=== PATIENT | male | born 1955 | race Caucasian/White ===

== ENCOUNTER 2018-06-04 12:09 | Observation (INO) | payer OTHER ==
--- NOTE | 2018-06-04 12:53 | ED ---
Complex/Multi-Sys Presentation - HPI Summary HPI Summary: [facility] 63[facility] edema times several weeks. Patient has a history of kidney transplant. He is currently taking torsemide. Pt. follows with Dr. Matamoros. Pt. denies fever, CP, SOB. Pt. was actually suppose to be a direct admit to the hospitalist under Dr. Gunter. Symptoms are moderate in severity. No current modifying factors. - History Of Current Complaint Chief Complaint: EDExtremityLower Time Seen by Provider: 06/04/18 12:46 Hx Obtained From: Patient - Allergies/Home Medications Allergies/Adverse Reactions: Allergies Allergy/AdvReac Type Severity Reaction Status Date / Time amlodipine [From [facility]] Allergy Severe Edema Verified 06/03/18 15:29 Home Medications: Home Medications Atorvastatin* [Lipitor*] 40 mg PO 1700 06/04/18 [History Confirmed 06/04/18] Fenofibrate,Micronized [Antara] 67 mg PO DAILY 06/04/18 [History Confirmed 06/04] Isosorbide Mononitrate [Isosorbide Mononitrate ER] 30 mg PO DAILY 06/04/18 [ History Confirmed 06/04/18] hydrALAZINE TAB* [Apresoline TAB*] 25 mg PO TID 06/04/18 [History Confirmed 08/10] predniSONE [Prednisone 5 MG TAB] 5 mg PO DAILY 06/04/18 [History Confirmed 06/04] PMH/Surg Hx/FS Hx/Imm Hx Previously Healthy: Yes Musculoskeletal History: Denies: Hx Rheumatoid Arthritis, Hx Osteoporosis Infectious Disease History: No Infectious Disease History: Denies: Traveled Outside the [place] in Last 30 Days - Family History Known Family History: Positive: Other - noncontributory - Social History Occupation: Retired Lives: With Family Alcohol Use: None Substance Use Type: Reports: None Smoking Status (MU): Never Smoked Tobacco Review of Systems Constitutional: Negative Negative: Fever, Chills Cardiovascular: Negative Negative: Palpitations, Chest Pain Respiratory: Negative Negative: Shortness Of Breath, Cough Gastrointestinal: Negative Positive: Other - Bilateral LE edema Neurological: Negative All Other Systems Reviewed And Are Negative: Yes Physical Exam Triage Information Reviewed: Yes Vital Signs On Initial Exam: Initial Vitals Temp Pulse Resp BP Pulse Ox 98.0 F 86 16 134/94 94 06/04/18 12:10 06/04/18 12:10 06/04/18 12:10 06/04/18 12:10 06/04/18 12:10 Vital Signs Reviewed: Yes Appearance: Positive: Well-Appearing - Pt. sitting up in bed in NAD. present. Skin: Positive: Warm, Dry Head/Face: Positive: Normal Head/Face Inspection Eyes: Positive: Normal, EOMI Neck: Positive: Supple Respiratory/Lung Sounds: Positive: Breath Sounds Present, Rales Cardiovascular: Positive: Normal, RRR Musculoskeletal: Positive: Other - Bilateral pitting edema. No signs of infection Neurological: Positive: Normal, CN Intact II-III Psychiatric: Positive: Affect/Mood Appropriate Diagnostics - Vital Signs Vital Signs Temp Pulse Resp BP Pulse Ox 06/04/18 12:10 98.0 F 86 16 134/94 94 - Laboratory Lab Statement: Any lab studies that have been ordered have been reviewed, and results considered in the medical decision making process. Complex Multi-Symp Course/Dx Course Of Treatment: Pt. presenting for direct admit for ongoing peripheral edema. He is afebrile, stable vital signs. Gen. is to be admitted to Dr. Gunter's service. - Diagnoses Provider Diagnoses: Peripheral edema Discharge - Sign-Out/Discharge Documenting (check all that apply): Patient Departure - Discharge Plan Condition: Stable Disposition: ADMITTED TO [facility] - Billing Disposition and Condition Condition: STABLE Disposition: Admitted to [facility]
--- NOTE | 2018-06-04 15:33 | ADMNOTE ---
Subjective Date of Service: 06/04/18 Interval History: ADMISSION HISTORY AND PHYSICAL EXAM: Allergies Allergy/AdvReac Type Severity Reaction Status Date / Time amlodipine [From [facility]] Allergy Severe Edema Verified 06/03/18 15:29 Home Medications Medication Instructions Recorded Confirmed Type Allopurinol TAB* [Zyloprim 100 MG 300 mg PO DAILY 06/03/18 06/04/18 History TAB*] Aspirin [Gricelda Aspirin EC Low Dose 81 mg PO DAILY 06/03/18 06/04/18 History 81 MG] Metoprolol Succinate [Kapspargo 25 mg PO DAILY 06/03/18 06/04/18 History Sprinkle] Mycophenolate Mofetil CAP(*) 1,000 mg PO BID 06/03/18 06/04/18 History [Cellcept CAP(*)] Torsemide TAB* [Demadex*] 40 tab PO SEE INSTRUCTIONS 06/03/18 06/04/18 History cycloSPORINE [Cyclosporine] 100 mg PO BID 06/03/18 06/04/18 History Atorvastatin* [Lipitor*] 40 mg PO 1700 06/04/18 06/04/18 History Fenofibrate,Micronized [Antara] 67 mg PO DAILY 06/04/18 06/04/18 History Isosorbide Mononitrate [Isosorbide 30 mg PO DAILY 06/04/18 06/04/18 History Mononitrate ER] hydrALAZINE TAB* [Apresoline TAB*] 25 mg PO TID 06/04/18 06/04/18 History predniSONE [Prednisone 5 MG TAB] 5 mg PO DAILY 06/04/18 06/04/18 History HPI: about 6 weeks ago patient developed increasing edema of th elower half of his body, sufficient to greatly interfere with his walking. He only weighs himself about once o week or less. He gained at most 20 lbs, since lost 10 lbs but no improvement in his subj edema. No response to po mrotlazone with IV furosemide 120 mg this week Taking po torsemide 20 mg tid recently Nocturia x 3-4. No SOB. Family History: Findings - Father age 57 [place], smoked. Mother lived at least to . Social History: Findings - Never smoked. No alcohol abuse. SDM is his fiancee Margot Anthony. Past Medical History: Findings - Finished 35 RT for basal cell nose yesterday. Renal transplnat 2002. PCK. CABG x 5 2 yrs ago. Melanoma nose 2011. LTKA x 2 , tonsillectomy, stefan R IHR. Review of Systems - Measurements Intake and Output: Intake and Output Last 24 Hours 06/02/18 06/03/18 06/04/18 06/05/18 06:59 06:59 06:59 06:59 Weight 234 lb 9.6 oz - Review of Systems Constitutional Symptoms: Positive: Weight Gain - 10-20 lbx Dermatology: Positive: Normal HEENT: Positive: Normal Eyes: Positive: Normal Thyroid: Positive: Normal Pulmonary: Positive: Normal Cardiology: Positive: Normal Gastroenterology: Positive: Normal Genital - Urinary: Positive: Normal Endocrinology: Positive: Normal Hematologic/Lymphatic: Positive: Anemia Neurology: Positive: Normal Psychiatry: Positive: Normal Objective Active Medications: Allopurinol (Zyloprim Tab*) 300 mg PO DAILY [facility] Aspirin (Aspirin Ec Tab*) 81 mg PO DAILY [facility] Atorvastatin Calcium (Lipitor*) 40 mg PO 1700 [facility] Cyclosporine (Sandimmune (Nf)) 100 mg PO BID [facility]; Protocol Hydralazine HCl (Apresoline Tab*) 25 mg PO TID [facility] Furosemide 100 mg/ Sodium (Chloride) 100 mls @ 40 mls/hr IV .(as INITIAL RATE) [facility]; Protocol Isosorbide Mononitrate (Imdur Er Tab*) 30 mg PO DAILY [facility] Metolazone (Zaroxolyn Tab*) 10 mg PO DAILY [facility] Mycophenolate Mofetil (Cellcept Cap(*)) 1,000 mg PO BID [facility] Non-Formulary Medication (Fenofibrate,Micronized [Antara]) 67 mg PO DAILY [facility] Non-Formulary Medication (Metoprolol Succinate [Kapspargo Sprinkle]) 25 mg PO DAILY [facility] Prednisone (Deltasone Tab*) 5 mg PO DAILY [facility] Vital Signs - 8 hr 06/04/18 06/04/18 12:10 13:30 Temperature 98.0 F 97.6 F Pulse Rate 86 124 Respiratory 16 22 Rate Blood Pressure 134/94 143/102 (mmHg) O2 Sat by Pulse 94 100 Oximetry Oxygen Devices in Use Now: None Appearance: Alert, sitting up in bed. In good spirits. Looks comfortable. Eyes: No Scleral Icterus Ears/Nose/Mouth/Throat: Clear Oropharnyx, Mucous Membranes Moist Neck: NL Appearance and Movements; NL JVP, No Thyroid Enlargement, Masses Respiratory: Symmetrical Chest Expansion and Respiratory Effort, Clear to Auscultation, Clear to Percussion Cardiovascular: NL Sounds; No Murmurs; No JVD, RRR, No Edema, - Abdominal: NL Sounds; No Tenderness; No Distention, No Hepatosplenomegaly, - Extremities: No Clubbing, Cyanosis, - - 3+ edema LE's Skin: No Nodules or Sclerosis, - - nose very red, yellow exudate around nares Neurological: Alert and Oriented x 3, NL Sensation Assess/Plan/Problems-Billing Assessment: - Patient Problems (1) Edema Current Visit: Yes Status: Acute Code(s): R60.9 - EDEMA, UNSPECIFIED SNOMED Code(s): 657042762 Comment: Note PVR of 0 by bladder scan 06/04/18. Albumin 3.7 05/24. Labs pending. Start IV furosemide 40 mg/hr 06/04, metolazone 10 mg daily 06/04. (2) CKD (chronic kidney disease) Current Visit: Yes Status: Acute Code(s): N18.9 - CHRONIC KIDNEY DISEASE, UNSPECIFIED SNOMED Code(s): 436752524 Comment: PCK s/p renal transplant 2002. Continue cyclosporine, mycophenolae , prednisone. BMP pending, repeat 06/05. (3) CAD (coronary artery disease) Current Visit: Yes Status: Acute Code(s): I25.10 - ATHSCL HEART DISEASE OF [place] CORONARY ARTERY W/O ANG PCTRS SNOMED Code(s): 39409371 Comment: Continue ASA, metoprolol, statin, nitrate. (4) HTN (hypertension) Current Visit: Yes Status: Acute Code(s): I10 - ESSENTIAL (PRIMARY) HYPERTENSION SNOMED Code(s): 21207897 Comment: Continue BB, hydralazine, nitrate. (5) Gout Current Visit: Yes Status: Acute Code(s): M10.9 - GOUT, UNSPECIFIED SNOMED Code(s): 95524232 Comment: Continue allopurinol.
[2018-06-04] MEDS ORDERED: Furosemide IV* 100 MG in NS 0.9% 100 ML* 90 ML IV SCH ×4 (16:00)
[2018-06-04 16:18] LABS: ABS Basophils 0.1 10^3/ul (0-0.2); ABS Eosinophils 0.1 10^3/ul (0-0.6); ABS Lymphocytes 0.3 10^3/ul (1.0-4.8); ABS Monocytes 0.4 10^3/ul (0-0.8); ABS Neutrophils 7.1 10^3/ul (1.5-7.7); ABS Nucleated RBC 0 10^3/ul; Hematocrit 34 % (42-52); Hemoglobin 11.2 g/dl (14.0-18.0); Lymphocyte % 3.5 % (25-47); Mean Corpuscular HGB Conc 33 g/dl (31-36); Mean Corpuscular Hemoglobin 29 pg (27-31); Mean Corpuscular Volume 89 fL (80-94); Mean Platelet Volume 9.9 um3 (7.4-10.4); Nucleated Red Blood Cells % 0; Platelet Count 121 10^3/ul (150-450); Red Blood Count 3.83 10^6/ul (4.00-5.40); Red Cell Distribution Width 16 % (10.5-15); White Blood Count 7.9 10^3/ul (3.5-10.8)
[2018-06-04 16:36] LABS: EGFR Non-African American 21.2 (>60)
[2018-06-04] MEDS: FUROSEMIDE IV SCH (17:23)
[2018-06-04] MEDS: NS 0.9% IV SCH (17:23)
[2018-06-04] MEDS: Metolazone TAB* 5 MG PO SCH (17:23)
[2018-06-04] MEDS: Atorvastatin* 40 MG TAB PO SCH (17:23)
[2018-06-04 19:23] LABS: INR 1.04 (0.77-1.02)
[2018-06-04] MEDS: Mycophenolate Mofetil TAB(*) 500 MG PO SCH (21:07)
[2018-06-04] MEDS: hydrALAZINE TAB* 25 MG PO SCH (21:07)
[2018-06-04] MEDS: Heparin VIAL(*) 5000 UNITS/ML VIAL (FIVE THOUSAND) SUBCUT SCH (21:08)
[2018-06-04] MEDS: CYCLOSPORINE 100 MG PO SCH (21:08)
[2018-06-05] MEDS: Heparin VIAL(*) 5000 UNITS/ML VIAL (FIVE THOUSAND) SUBCUT SCH ×3 (06:00→20:03)
[2018-06-05] MEDS: FUROSEMIDE IV SCH ×3 (06:19→16:48)
[2018-06-05] MEDS: NS 0.9% IV SCH ×3 (06:19→16:48)
[2018-06-05] MEDS ORDERED: Metoprolol Succinate XL TAB* 25 MG PO SCH (09:00)
[2018-06-05] MEDS: Aspirin EC TAB* 81 MG TAB.EC PO SCH (09:05)
[2018-06-05] MEDS: predniSONE TAB* 5 MG PO SCH (09:05)
[2018-06-05] MEDS: Metolazone TAB* 5 MG PO SCH (09:05)
[2018-06-05] MEDS: Allopurinol TAB* 300 MG PO SCH (09:05)
[2018-06-05] MEDS: Isosorbide Mononitrate ER TAB* 30 MG PO SCH (09:06)
[2018-06-05] MEDS: hydrALAZINE TAB* 25 MG PO SCH ×3 (09:06→19:53)
[2018-06-05] MEDS: CYCLOSPORINE 100 MG PO SCH ×2 (09:06→19:53)
[2018-06-05] MEDS: Mycophenolate Mofetil TAB(*) 500 MG PO SCH ×2 (09:06→19:54)
[2018-06-05 09:10] LABS: EGFR Non-African American 22.2 (>60)
[2018-06-05] MEDS: FENOFIBRATE MICRONIZED 67 MG PO SCH (09:13)
--- NOTE | 2018-06-05 09:53 | PN ---
Subjective Date of Service: 06/05/18 Interval History: Legs sl less swollen subj. No new c/o. Family History: Findings - Father age 57 [place], smoked. Mother lived at least to . Social History: Findings - Never smoked. No alcohol abuse. SDM is his yohanancepat Anthony. Past Medical History: Findings - Finished 35 RT for basal cell nose yesterday. Renal transplnat 2002. PCK. CABG x 5 2 yrs ago. Melanoma nose 2010. LTKA x 2 , tonsillectomy, appy, R IHR. Objective Active Medications: Allopurinol (Zyloprim Tab*) 300 mg PO DAILY [facility] Last Admin: 06/05/18 09:05 Dose: 300 mg Aspirin (Aspirin Ec Tab*) 81 mg PO DAILY [facility] Last Admin: 06/05/18 09:05 Dose: 81 mg Atorvastatin Calcium (Lipitor*) 40 mg PO 1700 [facility] Last Admin: 06/04/18 17:23 Dose: 40 mg Cyclosporine (Sandimmune (Nf)) 100 mg PO BID [facility]; Protocol Last Admin: 06/05/18 09:06 Dose: 100 mg Heparin Sodium (Porcine) (Heparin Vial(*)) 5,000 units SUBCUT Q8HR [facility] Last Admin: 06/05/18 06:00 Dose: 5,000 units Hydralazine HCl (Apresoline Tab*) 25 mg PO TID [facility] Last Admin: 06/05/18 09:06 Dose: 25 mg Furosemide 500 mg/ Sodium (Chloride) 500 mls @ 40 mls/hr IV Q12H [facility]; Protocol Stop: 06/06/18 06:00 Last Admin: 06/05/18 06:19 Dose: 40 mls/hr Isosorbide Mononitrate (Imdur Er Tab*) 30 mg PO DAILY [facility] Last Admin: 06/05/18 09:06 Dose: 30 mg Metolazone (Zaroxolyn Tab*) 10 mg PO DAILY [facility] Last Admin: 06/05/18 09:05 Dose: 10 mg Metoprolol Succinate (Toprol Xl Tab*) 25 mg PO DAILY [facility] Last Admin: 06/05/18 09:05 Dose: 25 mg Mycophenolate Mofetil (Cellcept Tab(*)) 1,000 mg PO BID [facility] Last Admin: 06/05/18 09:06 Dose: 1,000 mg Fenofibrate, Micronized [Antara] 67 Mg 67 mg PO DAILY [facility] Last Admin: 06/05/18 09:13 Dose: Not Given Prednisone (Deltasone Tab*) 5 mg PO DAILY [facility] Last Admin: 06/05/18 09:05 Dose: 5 mg Torsemide (Demadex*) 80 mg PO DAILY [facility] Vital Signs - 8 hr 06/05/18 06/05/18 03:50 07:41 Temperature 98.2 F 97.6 F Pulse Rate 75 74 Respiratory 17 24 Rate Blood Pressure 148/100 145/96 (mmHg) O2 Sat by Pulse 95 96 Oximetry Oxygen Devices in Use Now: None Appearance: Alert, in recliner chair with both legs elevated. Eyes: No Scleral Icterus Extremities: No Clubbing, Cyanosis, - - 2-3+ edema both LE's. Skin: No Rash or Ulcers, No Nodules or Sclerosis, - Neurological: Alert and Oriented x 3, NL Sensation Result Diagrams: 06/04/18 16:10 06/05/18 08:42 Assess/Plan/Problems-Billing Assessment: - Patient Problems (1) Edema Current Visit: Yes Status: Acute Code(s): R60.9 - EDEMA, UNSPECIFIED SNOMED Code(s): 537601714 Comment: Note PVR of 0 by bladder scan 06/04/18. Albumin 3.7 05/24. Creat down to 2.89 06/05. Stop IV furosemide 40 mg/hr 06/05 6 AM Start po torsemide 80 mg daily 06/05 at 9 AM, continue metolazone 10 mg daily. (2) CKD (chronic kidney disease) Current Visit: Yes Status: Acute Code(s): N18.9 - CHRONIC KIDNEY DISEASE, UNSPECIFIED SNOMED Code(s): 400370586 Comment: K s/p renal transplant 2002. Continue cyclosporine, mycophenolae , prednisone. (3) CAD (coronary artery disease) Current Visit: Yes Status: Acute Code(s): I25.10 - ATHSCL HEART DISEASE OF [place] CORONARY ARTERY W/O ANG PCTRS SNOMED Code(s): 63680325 Comment: Continue ASA, metoprolol, statin, nitrate. (4) HTN (hypertension) Current Visit: Yes Status: Acute Code(s): I10 - ESSENTIAL (PRIMARY) HYPERTENSION SNOMED Code(s): 63482453 Comment: Continue BB, hydralazine, nitrate. (5) Gout Current Visit: Yes Status: Acute Code(s): M10.9 - GOUT, UNSPECIFIED SNOMED Code(s): 50587157 Comment: Continue allopurinol.
[2018-06-05] MEDS ORDERED: Metoprolol Tartrate TAB* 25 MG PO ONE (09:54)
[2018-06-05] MEDS: Atorvastatin* 40 MG TAB PO SCH (17:49)
[2018-06-06] MEDS ORDERED: Furosemide IV* 100 MG in NS 0.9% 100 ML* 90 ML IV SCH ×2 (01:48→02:00)
[2018-06-06] MEDS: Heparin VIAL(*) 5000 UNITS/ML VIAL (FIVE THOUSAND) SUBCUT SCH ×2 (05:50→15:04)
[2018-06-06 06:47] LABS: EGFR Non-African American 21.7 (>60)
[2018-06-06] MEDS: Isosorbide Mononitrate ER TAB* 30 MG PO SCH (08:59)
[2018-06-06] MEDS: Metolazone TAB* 5 MG PO SCH (08:59)
[2018-06-06] MEDS: Aspirin EC TAB* 81 MG TAB.EC PO SCH (09:00)
[2018-06-06] MEDS ORDERED: Metoprolol Succinate XL TAB* 50 MG PO SCH (09:00)
[2018-06-06] MEDS ORDERED: Torsemide TAB* 20 MG PO SCH (09:00)
[2018-06-06] MEDS: Mycophenolate Mofetil TAB(*) 500 MG PO SCH (09:01)
[2018-06-06] MEDS: predniSONE TAB* 5 MG PO SCH (09:01)
[2018-06-06] MEDS: Allopurinol TAB* 300 MG PO SCH (09:01)
[2018-06-06] MEDS: CYCLOSPORINE 100 MG PO SCH (09:01)
[2018-06-06] MEDS: hydrALAZINE TAB* 25 MG PO SCH ×2 (09:01→15:03)
[2018-06-06] MEDS: FENOFIBRATE MICRONIZED 67 MG PO SCH (09:06)
[2018-06-06 11:32] VITALS: BP 127/83
--- NOTE | 2018-06-06 14:57 | PN ---
Progress Note - Progress Note Date of Service: 06/06/18 Note: Time spent on discharge 40 minutes, including exam of the patient, discussion with the patient, his , the nurse, the hospital and the retail pharmacist, the CM. review of the EMR and preparation of discharge documents.
--- NOTE | 2018-06-07 00:33 | DS ---
CC: Dr. Avalos; Dr. Matamoros DISCHARGE SUMMARY: DATE OF ADMISSION: DATE OF DISCHARGE: 06/06/18 HOSPITAL COURSE: This 63-year-old man was admitted for severe edema, both lower extremities. This was interfering with his ability to walk and was very uncomfortable. He had gone to the infusion center for furosemide 120 mg IV with not much affect. I think he got a dose of metolazone before that as well. He has been taking torsemide 20 mg t.i.d. at home, but no metolazone. The rest of the history is detailed in my admission note. The patient was given intravenous furosemide 40 mg an hour. He had excellent diuresis with this. He was given metolazone 10 mg daily including on the day of admission. He lost about 15 pounds per hospital weights. His total fluid balance was over 7 L negative balance, which would go along with the weight change. On the day of discharge, I gave him 80 mg of torsemide p.o. and 10 mg metolazone p.o. His urine output was a liter by 3 p.m. I think this might be adequate to maintain him. Possibly, he will lose weight slowly on this. If not , the torsemide or the metolazone dose or both can be increased. FINAL DIAGNOSES: 1. Renal insufficiency. 2. Polycystic kidney disease. 3. Coronary artery disease. 4. Hypertension. 5. Gout. 6. Status post renal transplant. DISCHARGE MEDICATIONS: 1. Metolazone 5 mg 2 tablets every morning. 2. Torsemide 20 mg 4 tablets every morning. 3. Metoprolol succinate 25 mg daily. 4. Cyclosporine 100 mg b.i.d. 5. Mycophenolate 1000 mcg b.i.d. 5. Aspirin 81 mg daily. 6. Allopurinol 300 mg daily. 7. Hydralazine 25 mg t.i.d. 8. Isosorbide mononitrile 30 mg daily. 9. Fenofibrate 67 mg daily. 10. Atorvastatin 40 mg daily at 5 p.m. 11. Prednisone 5 mg daily. The patient will have a BMP on 06/08/18 unless changed by other providers. DISPOSITION ON DISCHARGE: Home. CONDITION ON DISCHARGE: Improved. [id number]/[facility] #: [id number] [facility]
== END 2018-06-06 15:15 | disposition home or self-care (01) | DRG 199 ==
LOC: ED 12:09 → INTOOBSV 12:45 → MED 12:45 → UNDODISIN 06-06 15:15
PROVIDERS: ADMIT Internal Medicine; ATTEND Internal Medicine
DX: I13.10 Hypertensive heart and chronic kidney disease without heart failure, with stage 1 through stage 4 chronic kidney disease, or unspecified chronic kidney disease (principal); Q61.3 Polycystic kidney, unspecified; Z94.0 Kidney transplant status; N18.9 Chronic kidney disease, unspecified; R60.0 Localized edema; C43.31 Malignant melanoma of nose; I25.10 Atherosclerotic heart disease of native coronary artery without angina pectoris; Z96.652 Presence of left artificial knee joint; M10.9 Gout, unspecified; Z88.8 Allergy status to other drugs, medicaments and biological substances; Z95.1 Presence of aortocoronary bypass graft; Z79.82 Long term (current) use of aspirin; Z79.52 Long term (current) use of systemic steroids; Z79.899 Other long term (current) drug therapy; Z82.49 Family history of ischemic heart disease and other diseases of the circulatory system
CPT/HCPCS: 36415; 80048; 80053; 83735; 85025; 85610; 85730; 90471; 90686; 96365; 96375; 96376; 99284; A9270-GY; G0008; G0378; J1644; J1940; J7502; J7512

== ENCOUNTER 2019-01-20 11:50 | Inpatient (IN) | payer OTHER ==
--- NOTE | 2019-01-20 12:35 | ED ---
Complex/Multi-Sys Presentation - HPI Summary HPI Summary: 63 year old M presenting to [facility] with a chief complaint of lower extremity swelling since today. The patient rates the pain 2/10 in severity. Symptoms aggravated by nothing. Symptoms alleviated by nothing. Patient reports cough and shortness of breath. Patient was diagnosed with pneumonia last year, after which he had a lot of lower extremity swelling. Recently, patient had CXR done which showed "cloudiness" in his lower lungs. Patient states he has a blood blister on his lower left leg for which he saw his primary care physician 10 days ago. Patient normally sleeps in a chair. Patient had kidney transplant in 2013 at [facility]. - History Of Current Complaint Chief Complaint: EDGeneral Time Seen by Provider: 01/20/19 12:09 Hx Obtained From: Patient Onset/Duration: Lasting Days - 1, Still Present Timing: Constant Severity Currently: Mild Aggravating Factor(s): Nothing Alleviating Factor(s): Nothing Associated Signs And Symptoms: Positive: SOB, Cough - Allergies/Home Medications Allergies/Adverse Reactions: Allergies Allergy/AdvReac Type Severity Reaction Status Date / Time amlodipine [From [facility]] Allergy Severe Edema Verified 01/20/19 11:55 Home Medications: Home Medications Aspirin EC TAB* [Ecotrin EC Low Dose 81 MG*] 81 mg PO DAILY 01/20/19 [History Confirmed 01/20/19] Cyclosporine (NF) [Sandimmune (NF)] 100 mg PO BID 01/20/19 [History Confirmed ] Fenofibric Acid (Nf) [Fenofibric Acid] 67 mg PO DAILY 01/20/19 [History Confirmed 01/20/19] Isosorbide Mononitrate ER TAB* [Imdur ER TAB*] 15 mg PO QAM 01/20/19 [History Confirmed 01/20/19] Isosorbide Mononitrate ER TAB* [Imdur ER TAB*] 45 mg PO QPM 01/20/19 [History Confirmed 01/20/19] Metolazone TAB* [Zaroxolyn TAB*] 5 mg PO DAILY 01/20/19 [History Confirmed 01/20] Metoprolol Succinate XL TAB* [Toprol XL TAB*] 50 mg PO DAILY 01/20/19 [History Confirmed 01/20/19] Mycophenolate Mofetil CAP(*) [Cellcept CAP(*)] 1,000 mg PO BID 01/20/19 [ History Confirmed 01/20/19] Rosuvastatin (NF) [Crestor (NF)] 20 mg PO QPM 01/20/19 [History Confirmed ] Torsemide TAB* [Demadex 20 MG*] 60 mg PO DAILY 01/20/19 [History Confirmed 01/20] ceFUROXime TAB(*) [Ceftin TAB 250 MG(*)] 500 mg PO DAILY 01/20/19 [History Confirmed 01/20/19] PMH/Surg Hx/FS Hx/Imm Hx Previously Healthy: No Cardiovascular History: Reports: Hx Auto Implanted Cardiovert Defib, Hx Hypertension, Hx Pacemaker/ICD History: Reports: Hx Chronic Renal Failure, Other Problems/Disorders - R kidney transplant in 2002 Musculoskeletal History: Denies: Hx Rheumatoid Arthritis, Hx Osteoporosis Sensory History: Reports: Hx Contacts or Glasses - Reading Denies: Hx Hearing Aid Opthamlomology History: Reports: Hx Contacts or Glasses - Reading - Cancer History Cancer Type, Location and Year: basal cell- nose - Surgical History Surgery Procedure, Year, and Place: TKA Infectious Disease History: No Infectious Disease History: Denies: Traveled Outside the [place] in Last 30 Days - Family History Known Family History: Positive: Other - noncontributory - Social History Alcohol Use: None Hx Substance Use: No Substance Use Type: Reports: None Hx Tobacco Use: No Smoking Status (MU): Never Smoked Tobacco Review of Systems Positive: Shortness Of Breath, Cough Positive: Other - lower extremity swelling All Other Systems Reviewed And Are Negative: Yes Physical Exam - Summary Physical Exam Summary: VITAL SIGNS: Reviewed. GENERAL: Patient is a well-developed and nourished MALE who is lying comfortable in the stretcher. Patient is not in any acute respiratory distress. HEAD AND FACE: No signs of trauma. No ecchymosis, hematomas or skull depressions. No sinus tenderness. EYES: PERRLA, EOMI x 2, No injected conjunctiva, no nystagmus. EARS: Hearing grossly intact. Ear canals and tympanic membranes are within normal limits. MOUTH: Oropharynx within normal limits. NECK: Supple, trachea is midline, no adenopathy, no JVD, no carotid bruit, no c- spine tenderness, neck with full ROM. CHEST: Symmetric, no tenderness at palpation LUNGS: Decreased breath sounds in both lungs CVS: Regular rate and rhythm, S1 and S2 present, no murmurs or gallops appreciated. ABDOMEN: Soft, non-tender. No signs of distention. No rebound no guarding, and no masses palpated. Bowel sounds are normal. EXTREMITIES: FROM in all major joints, BLE edema, no cyanosis or clubbing. NEURO: Alert and oriented x 3. No acute neurological deficits. Speech is normal and follows commands. SKIN: Dry and warm. Triage Information Reviewed: Yes Vital Signs On Initial Exam: Initial Vitals Temp Pulse Resp BP Pulse Ox 98.9 F 64 16 150/105 97 01/20/19 11:53 01/20/19 11:53 01/20/19 11:53 01/20/19 11:53 01/20/19 11:53 Vital Signs Reviewed: Yes Diagnostics - Vital Signs Vital Signs Temp Pulse Resp BP Pulse Ox 01/20/19 11:53 98.9 F 64 16 150/105 97 - Laboratory Result Diagrams: 01/20/19 12:20 01/20/19 12:20 Lab Statement: Any lab studies that have been ordered have been reviewed, and results considered in the medical decision making process. - Radiology CXR Radiology Interpretation Completed By: Radiologist Summary of Radiographic Findings: 1. Probable mild interstitial edema with associated small to moderate RIGHT and small LEFT pleural effusions with proportional basilar atelectasis. Inflammatory infiltrate at the RIGHT lung base is not excluded. Correlate with clinical assessment. ED physician has reviewed this report. - EKG 1217 Cardiac Rate: NL - BPM EKG Rhythm: Sinus Rhythm Summary of EKG Findings: Q waves in III and AVF. T wave inversion in AVL and ST depressions V4, V5. Complex Multi-Symp Course/Dx Assessment/Plan: 63 year old M presenting to [facility] with a chief complaint of lower extremity swelling since today. The patient rates the pain 2/10 in severity. Symptoms aggravated by nothing. Symptoms alleviated by nothing. Patient reports cough and shortness of breath. Patient was diagnosed with pneumonia last year, after which he had a lot of lower extremity swelling. Recently, patient had CXR done which showed "cloudiness" in his lower lungs. Patient states he has a blood blister on his lower left leg for which he saw his primary care physician 10 days ago. Patient normally sleeps in a chair. Patient had kidney transplant in 2013 at [facility]. Blood work shows RBCs of 15, hemoglobin 12.2, hematocrit is 38, platelet is 158. Sodium was 134, potassium is 3.4, chloride 94, anion gap is 16, creatinine 3.35, total bili is 1.9, total CPK is 75, troponin 0.22, CRP is 11.05, BNP is more than 1300, total protein is 5.7, globulin 1.9. Chest x-ray impression: Probably mild interstitial edema with associated small to moderate right and small left pleural effusion with proportional basal atelectasis. Inflammatory infiltrate at the right lung base is not excluded. Correlate with clinical assessment. Bilateral lower extremity ultrasound impression: No right or left lower extremity deep venous thrombosis. Right Bakers cyst. In the ED course, the patient was given Rocephin to cover the left lower extremitty cellulitis and possible early pneumonia. The patient also was given Lasix for the CHF exacerbation. I discussed my physical exam, findings and test results with Dr. Diane from the hospitalist services and she agrees to admit patient to her services. Patient is hemodynamically stable alert and oriented x 3. - Diagnoses Provider Diagnoses: CHF exacerbation, Elevated troponin, [id number] renal failure, Pneumonia , Cellulitis - Physician Notifications Discussed Care Of Patient With: Karyn Diane Time Discussed With Above Provider: 14:00 Instructed by Provider To: Other - Dr. Diane, hospitalist, agrees to admit patient Discharge - Sign-Out/Discharge Documenting (check all that apply): Patient Departure - Admit Patient Received Moderate/Deep Sedation with Procedure: No - Discharge Plan Condition: Stable Disposition: HOME - Billing Disposition and Condition Condition: STABLE Disposition: Home - Attestation Statements Document Initiated by Scribe: Yes Documenting Scribe: Yessenia Yeboah Provider For Whom Maged is Documenting (Include Credential): Mars Chase MD Scribe Attestation: I, Yessenia Yeboah, scribed for Mars Chase MD on 01/20/19 at 1851. Scribe Documentation Reviewed: Yes Provider Attestation: The documentation as recorded by the scribeYessenia accurately reflects the service I personally performed and the decisions made by me, Mars Chase MD Status of Scribe Document: Viewed
[2019-01-20 12:49] LABS: ABS Eosinophils 0.1 10^3/ul (0-0.6); ABS Lymphocytes 0.9 10^3/ul (1.0-4.8); ABS Monocytes 1.1 10^3/ul (0-0.8); ABS Neutrophils 12.8 10^3/ul (1.5-7.7); ABS Nucleated RBC 0.1 10^3/ul; Eosinophil % 0.5 %; Hematocrit 38 % (42-52); Hemoglobin 12.2 g/dL (14.0-18.0); Lymphocyte % 6.1 %; Mean Corpuscular HGB Conc 32 g/dL (31-36); Mean Corpuscular Hemoglobin 29 pg (27-31); Mean Corpuscular Volume 91 fL (80-94); Mean Platelet Volume 10.9 fL (7.4-10.4); Nucleated Red Blood Cells % 0.5; Platelet Count 158 10^3/uL (150-450); Red Blood Count 4.23 10^6 /uL (4.18-5.48); Red Cell Distribution Width 17 % (10.5-15)
[2019-01-20 13:00] LABS: ALT 22 U/L (7-52); AST 38 U/L (13-39); Albumin 3.8 g/dL (3.2-5.2); Alkaline Phosphatase 50 U/L (34-104); Anion Gap 16 mmol/L (2-11); C Reactive Protein 11.05 mg/L (<8.01); CO2 Carbon Dioxide 24 mmol/L (22-32); Calcium 8.8 mg/dL (8.6-10.3); Chloride 94 mmol/L (101-111); Creatine Kinase 705 U/L (10-223); EGFR African American 22.6 (>60); EGFR Non-African American 18.7 (>60); Globulin 1.9 g/dL (2-4); Glucose 94 mg/dL (70-100); Magnesium 2.2 mg/dL (1.9-2.7); Potassium 3.4 mmol/L (3.5-5.0); Sodium 134 mmol/L (135-145); Total Protein 5.7 g/dL (6.4-8.9)
[2019-01-20 13:07] LABS: Troponin I 0.22 ng/mL (<0.04)
[2019-01-20 13:31] LABS: TSH (Thyroid Stimulating Horm) 2.34 mcIU/mL (0.34-5.60)
[2019-01-20] MEDS ORDERED: Furosemide IV* 10 MG/ML VIAL (40 MG) IV ONE (13:55)
[2019-01-20] MEDS ORDERED: Aspirin TAB* 325 MG PO ONE (13:55)
[2019-01-20] MEDS ORDERED: cefTRIAXone(*) 2 GM in NS 0.9% 100 ML* 100 ML IVPB ONE (13:55)
[2019-01-20] MEDS ORDERED: Aspirin 81 mg CHEW TAB* 81 MG TAB.CHEW PO ONE (14:12)
[2019-01-20 15:17] LABS: BUN/Creatinine Ratio 53.4 (8-20); Blood Urea Nitrogen 179 mg/dL (6-24)
[2019-01-20] MEDS ORDERED: Acetaminophen TAB* 325 MG PO PRN (16:17)
[2019-01-20] MEDS ORDERED: Potassium Chlor TAB* 20 MEQ TAB.ER PO ONE ×2 (17:06)
[2019-01-20] MEDS ORDERED: Piperacillin/Tazobac ADVAN(*) 3.375 GM in NS 0.9% 100 ML* 100 ML IVPB ONE (17:43)
[2019-01-20 17:59] LABS: Urine Appearance Clear; Urine Bacteria Absent (Absent); Urine Bilirubin Negative (Negative); Urine Blood 1+ (Negative); Urine Color Yellow; Urine Glucose Negative (Negative); Urine Ketones Negative (Negative); Urine Nitrite Negative (Negative); Urine Protein 1+(30 mg/dL) (Negative); Urine Red Blood Cell Trace(0-2/hpf) (Absent); Urine Specific Gravity 1.009 (1.010-1.030); Urine Urobilinogen Negative (Negative); Urine White Blood Cell Trace(0-5/hpf) (Absent)
[2019-01-20] MEDS ORDERED: Isosorbide Mononitrate ER TAB* 30 MG PO SCH (18:00)
[2019-01-20] MEDS ORDERED: metroNIDAZOLE IV 500 MG/100ML* 500 MG/100 ML BAG IVPB SCH (18:00)
[2019-01-20] MEDS ORDERED: Zosyn per Pharmacy* NOTE FOLLOW UP SCH (18:00)
[2019-01-20] MEDS: hydrALAZINE TAB* 25 MG PO SCH ×2 (18:09→21:34)
--- NOTE | 2019-01-20 18:13 | ECHO ---
*[facility]* [place] [address] Fax #: [phone] Transthoracic Echocardiogram Patient: Kt, Height: 74 in / 188 Wilder : 1955 Weight: 222.5 lb / Study Date: 01/20/2019 101.2 kg Age: 63 BP: 140 / 91 Gender: M BMI/BSA: 28.6 kg/m^2 / HR: 68 bpm 2.28 m^2 *Vb Net Developer: * Shilpi Lebron RD *Referring Physician: * Terrance Cabrera MD *Reading Physician: * Terrance Cabrera MD Indications: Chest Pain, unspecified. Congestive Heart Failure. Murmur. History: Risk factors: Hypertension. Labs, prior tests, procedures, and surgery: ICD system implantation. Right renal transplant (2002). Conclusions Summary: 1. Left ventricle: Systolic function is severely reduced. The estimated ejection fraction is 10-15%. Severe diffuse hypokinesis. Features are consistent with a pseudonormal left ventricular filling pattern, with concomitant abnormal relaxation and increased filling pressure (grade 2 diastolic dysfunction). 2. Right ventricle: Systolic function is mildly to moderately reduced. Systolic pressure is moderately to severely increased. 3. Mitral valve: There is moderate regurgitation. 4. Aortic valve: There is mild regurgitation. 5. Tricuspid valve: There is moderate-severe regurgitation. Study data: Transthoracic echocardiogram. Procedure: Transthoracic echocardiography was performed. Image quality was good. Complete 2D, spectral Doppler, and color flow Doppler. Location: Emergency department. Patient status: Inpatient. Patient room number: ED-15. No prior study is available for comparison. Rhythm: Paced rhythm. Findings Left ventricle: The cavity size is normal. There is mild concentric hypertrophy. Systolic function is severely reduced. The estimated ejection fraction is 10-15%. Severe diffuse hypokinesis. Regional wall motion abnormalities: Hypokinesis of the mid-apicalinferior myocardium. Features are consistent with a pseudonormal left ventricular filling pattern, with concomitant abnormal relaxation and increased filling pressure (grade 2 diastolic dysfunction). Right ventricle: The cavity size is moderately dilated. Pacer wire noted in the right ventricle. Systolic function is mildly to moderately reduced. Systolic pressure is moderately to severely increased. Ventricular septum: There is septal flattening of the interventricular septum consistent with RV volume or pressure overload. There is abnormal interventricular septal wall motion consistent with an RV pacemaker. Left atrium: The atrium is severely dilated. Right atrium: The atrium is severely dilated. Mitral valve: The leaflets are mildly thickened. There is no evidence of stenosis. There is moderate regurgitation. Aortic valve: The valve is trileaflet. The leaflets are mildly thickened. Valve mobility is restricted. There is no evidence of stenosis. There is mild regurgitation. Tricuspid valve: The leaflets are normal thickness. There is no evidence of stenosis. There is moderate-severe regurgitation. Pulmonic valve: The leaflets are normal thickness. There is no evidence of stenosis. There is trivial regurgitation. Aorta: Aortic root: The aortic root is mildly dilated. Ascending aorta: The ascending aorta is mildly dilated. Aortic arch: The aortic arch is appears normal. Pericardium: A prominent pericardial fat pad is present. There is no pericardial effusion. Pulmonary arteries: The main pulmonary artery is normal-sized. Systolic pressure is moderately to severely increased. Systemic veins: Inferior vena cava: The vessel is dilated. The respirophasic diameter changes are blunted (< 50%). Measurements Left ventricle Value Ref Aortic valve continued Value Ref SHAE, LAX 5.5 cm 4.2 - 5.8 Peak v, S 1.1 m/sec ----- ESD, LAX (H) 5.3 cm 2.5 - 4.0 VTI, S 19.0 cm ----- FS, LAX (L) 5 % 43 Mean grad, S 2.0 mm Hg ----- PW, ED, LAX (H) 1.2 cm 0.6 - 1.0 Peak grad, S 5.0 mm Hg ----- FS (L) 5 % 25 - 43 LVOT/AV, VTI ratio 0.58 ----- PW, ED (H) 1.2 cm 0.6 - 1.0 KRYSTA, VTI 2.62 cm^2 ----- E', lat adrian, TDI (L) 3.2 cm/sec >=10.0 KRYSTA, Vmax 2.58 cm^2 - ---- E/e', lat adrian, 19 TDI Mitral valve Value Ref E', med adrian, TDI (L) 4.0 cm/sec >=7.0 Peak E 0.6 m/sec - ---- E/e', med adrian, 15 Peak A 0.36 m/sec ---- - TDI Decel time 317 ms ----- E', avg, TDI 3.6 cm/sec Peak E/A ratio 1.7 ---- - E/e', avg, TDI (H) 17 <=14 MR alias velocity 0.24 m/sec - ---- MR PISA radius 0.6 cm ----- LVOT Value Ref Max MR v 4.98 m/sec ----- Diam, S 2.40 cm Regurg VTI 173.0 cm ----- Area 4.5 cm^2 ERO, PISA 0.11 cm^2 ----- Peak jesi, S 0.63 m/sec MR vol, PISA 19 ml ----- VTI, S 11.0 cm MR fraction, PISA 28 % ----- Mean grad, S 1 mm Hg SV 50 ml Pulmonic valve Value Ref SV/bsa 22 ml/m^2 Peak v, S 0.75 m/sec ----- Peak grad, S 2.0 mm Hg ----- Ventricular septum Value Ref IVS, ED (H) 1.3 cm 0.6 - 1.0 Tricuspid valve Value Ref TR peak v (H) 3.6 m/sec <=2.8 Right ventricle Value Ref Peak RV-RA grad, S 52 mm Hg ----- SHAE, LAX 4.4 cm SHAE minor ax, A4C (H) 5.1 cm 1.9 - 3.5 Aortic root Value Ref mid Root diam 4.1 cm <4.3 Pressure, S 60 mm Hg Ascending aorta Value Ref Left atrium Value Ref AAo AP diam, S 4.1 cm ----- AP dim, ES (H) 5.00 cm 3.00 - 4.00 Aortic arch Value Ref ML dim, A4C 5.8 cm Arch diam 1.9 cm ----- SI dim, A4C 7.2 cm Vol/bsa, ES, 1-p (H) 68 ml/m^2 12 - 37 Decending aorta Value Ref A4C Deana peak jesi 0.55 m/sec ----- Vol/bsa, ES, A/L (H) 65 ml/m^2 16 - 34 Pulmonary artery Value Ref Right atrium Value Ref Pressure, S 58.0 mm Hg ----- SI dim, ES (H) 6.7 cm 3.4 - 5.3 ML dim, ES, A4C (H) 6.1 cm 2.6 - 4.4 Inferior vena cava Value Ref SI dim, ES, A4C (H) 6.7 cm 3.4 - 5.3 Diam 2.2 cm ----- SI dim/bsa, ES, 2.9 cm/m^2 1.8 - 3.0 A4C Estimated RAP 8 mm Hg Aortic valve Value Ref Adrian diam, ED 2.2 cm Legend: (L) and (H) yuliana values outside specified reference range. Prepared and electronically signed by Terrance Cabrera MD 01/20/2019 18:12
[2019-01-20] MEDS ORDERED: Vancomycin per Pharmacy* NOTE FOLLOW UP PRN (18:16)
[2019-01-20] MEDS ORDERED: ZOSYN 3.375 GM x ONE DOSE over 30 miuntes IVPB ×2 (18:30)
[2019-01-20] MEDS ORDERED: Vancomycin 1500 MG IV - x ONCE IVPB ONE ×2 (18:30)
--- NOTE | 2019-01-20 19:19 | CONS ---
CC: Dr. Barbosa in [place]; Dr. Clayton in [place]; Terrance Cabrera MD * CARDIOLOGY CONSULTATION: DATE OF CONSULT: 01/20/19 CONSULTING PROVIDER: Karen Sauceda NP. REASON FOR EVALUATION: Edema, abnormal EKG, troponin. HISTORY OF PRESENT ILLNESS: This is a very pleasant 63-year-old gentleman with history of coronary disease, renal disease, status post transplant, hypertension who reports that he developed a cough over the last 6 weeks. He saw his primary care doctor about 10 days ago and was treated for possible left leg cellulitis and pneumonia. He said that he had been on Augmentin and doxycycline; did not do well and was treated with Ceftin on 01/13/19. His chest x-ray at that time revealed abnormality to right base and he was treated for the cellulitis and the possible pulmonary infection. He said he has continued to have a cough, which is occasionally productive of clear sputum, but he has gained 10 pounds over the last 10 days. He states he sleeps on 1 pillow on his side for comfort and has not changed recently but because of the increased fluid, he decided to come to the emergency room to be evaluated. He also said he woke up with some substernal chest pressure that felt like indigestion, no associated gas, diaphoresis, or shortness of breath. No sour taste. It lasted from 7 in the morning until approximately 4 and resolved after having a sandwich. He denies any syncope, palpitations, orthopnea, or PND. He denies hematemesis, hematochezia, diarrhea, or TIA. He does not exercise regularly. He states his legs are weak. He walks about 5 minutes in the yard with his dog and that is about the limit. He does not go up and down stairs. PAST MEDICAL HISTORY: Includes: 1. Hypertension. 2. Renal failure, status post kidney transplant approximately 16 years ago. 3. He had ventral herniorrhaphy after that. 4. He had an CT in August 2015 and coronary artery bypass grafting at [facility] shortly thereafter, 5-vessel. He was told of an EF 35% to 45% and also got a defibrillator according to the patient. 5. He has a history of hyperlipidemia. 6. Polycystic kidney disease. 7. Renal osteodystrophy. 8. Hydrocele. 9. Prostatic hypertrophy. 10. Hypomagnesemia. 11. Gout. 12. Erectile dysfunction. 13. Esophageal reflux. 14. Dysthymic disorder. 15. Diverticulosis. 16. Basal cell carcinoma. 17. Bile duct cystic dilatation with normal ERCP in April 2007. PAST SURGICAL HISTORY: 1. Coronary artery bypass grafting in 2016. 2. Left knee replacement. 3. Renal transplant 16 years ago and a ventral hernia repair after the transplant. MEDICATIONS: His home medicines include: 1. Cefuroxime 500 mg daily. 2. Fenofibric acid 67 mg a day. 3. Hydralazine 25 mg p.o. t.i.d. 4. Rosuvastatin 20 mg a day. 5. Metoprolol XL 50 mg daily. 6. Metolazone 5 mg daily. 7. Torsemide 60 mg daily. 8. Cyclosporine 100 mg b.i.d. 9. Prednisone 5 mg daily. 10. Allopurinol 300 mg a day. 11. Aspirin 81 mg a day. 12. CellCept 1000 mg b.i.d. 13. Isosorbide mononitrate 15 mg q.a.m. 14. Isosorbide mononitrate 45 mg q.p.m. ALLERGIES: His allergies includes intolerances to AUGMENTIN and DOXYCYCLINE as per his primary's note and NORVASC resulted in whole body puffiness. 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 FAMILY HISTORY: Includes, his mother at 101 and father at [address] He has 2 brothers and a sister alive with no cardiac problems. REVIEW OF SYSTEMS: Review of systems x10 was negative except as above. PHYSICAL EXAMINATION: He is a well-developed, well-nourished gentleman, in no apparent distress, pulse 66, blood pressure 145/96. No significant JVD. Carotids 2+ without bruits. Extraocular muscles intact. Sclerae anicteric. Cardiac Exam: S1, S2 with a 2/6 holosystolic murmur at the apex. Pacemaker was in place without drainage in his left chest. Absent breath sounds at the right base. Abdomen: Bowel sounds present with a subcutaneous mass in the right lower quadrant consistent with his transplanted kidney. Femoral pulses intact without bruits. There was 3+ edema of the left lower extremity, 2+ edema with some discomfort posteriorly as well as some erythema. Distal pulses intact. Motor strength 5/5 bilaterally. Deep tendon reflexes 2/4. Alert and oriented x3. DIAGNOSTIC STUDIES/LAB DATA: Labs include a white count elevated at 15, hemoglobin of 12.2, hematocrit of 38, platelet count of 158. Sodium 134, potassium of 3.4, BUN 179, creatinine of 3.35, up from 2.95 in May 2018. Troponin was 0.22 at 12:20 and 0.20 at 15:21. CRP elevated at 11. BNP greater than 1300. TSH was normal. Total bili was elevated at 1.9. Mag was normal at 2.2. Chest x-ray by report revealed mild interstitial edema with associated mild to moderate right and small left pleural effusions, cannot exclude an inflammatory infiltrate at the right lung base. Venous Doppler from today revealed no evidence of DVT, there was a right Barron's cyst and there was a septated cystic lesion posterior to left saphenofemoral junction without intraflow, unclear etiology. Differential includes chronic seroma, hematoma. His EKG revealed sinus rhythm with first-degree A-V block, left axis deviation, nonspecific IVCD and lateral ST-T changes. His EKG from March 2018 looks similar. ASSESSMENT AND PLAN: My impression is that Mr. Meraz has multiple medical problems and now presents with swelling, weight gain, pleural effusions, swelling to his legs, and possible resolving cellulitis of his left lower extremity, cough possibly related to heart failure/pneumonia. He also has renal insufficiency. I have discussed the case with the patient and with Karen Sauceda and recommend the followin. I would suggest gentle diuresis with IV Lasix since he does not appear to be responding to his oral diuretics. 2. Would consider an ID evaluation to guide treatment of his infections, in light of immunocompromised state. 3. Would repeat his echo to reevaluate LV function. 4. Would recommend better blood pressure control, which hopefully will improve with the control of his volume status. He reports his blood pressure is normal in the 120s to 130s. 5. Would maintain his electrolytes. 6. Would try to get old records from his drain cleaner plumber including echo reports and stress test reports. 7. His troponins are mildly elevated, but may be in the setting of heart failure and renal failure. He does not appear to have acute coronary syndrome. We will consider repeat evaluation with a nuclear stress test to evaluate for progression of ischemia. 8. Would check his lipid profile and consider treatment of his lipids. 9. Consider further evaluation of his left leg collection, which may be a seroma, but we would consider possibility of infection given his immunocompromised status. 10. Would consider using higher dose nitrates in the a.m. and giving him a break overnight to avoid tachyphylaxis. [id number]/[facility] #: [id number] 01/21/19 addendum: echo (see separate report) revealed moderate MR and severe LV dysfunction EF 10-15% which significant interval deterioration c/t the prior study. Will consider further evaluation for progression of his ischemic and valvular heart disease. D/w Tineo 01/21/19 and will consider transfer for advanced CHF evaluation. Prognosis guarded. MTDD
[2019-01-20] MEDS ORDERED: CMCS: Rosuvastatin (NF) 20 MG TAB PO SCH (20:00)
[2019-01-20 20:17] LABS: Troponin I 0.23 ng/mL (<0.04)
[2019-01-20] MEDS: ZOSYN 3.375 GM Q12H per EXTENDED INFUSION IVPB SCH ×2 (21:32)
[2019-01-20] MEDS: CYCLOSPORINE 100 MG PO SCH (21:34)
[2019-01-20] MEDS: Mycophenolate Mofetil TAB(*) 500 MG PO SCH (21:36)
[2019-01-20 22:17] LABS: Troponin I 0.21 ng/mL (<0.04)
[2019-01-20] MEDS: Heparin VIAL(*) 5000 UNITS/ML VIAL (FIVE THOUSAND) SUBCUT SCH (23:23)
--- NOTE | 2019-01-21 00:21 | HP ---
CC: Dr. Clayton; Dr. Tilley* HISTORY AND PHYSICAL: DATE OF ADMISSION: 01/20/19 PROVIDER: Joe Sauceda NP. PRIMARY CARE PROVIDER: Dr. Clayton. ATTENDING PHYSICIAN WHILE IN THE HOSPITAL: Dr. Karyn Diane* (dictated by Joe Sauceda NP). CHIEF COMPLAINT: 1. Lower extremity swelling. 2. Right chest pain. HISTORY OF PRESENT ILLNESS: Mr. Meraz is 63-year-old male with a past medical history significant for hypertension, coronary artery disease with moderate LVH , history of an AZ, status post 5-vessel bypass, pacemaker placement, status post renal transplant in 2002, and chronic kidney disease, who presented to the emergency room with complaints of increased swelling to bilateral lower extremities x2 days. The patient denies any need of elevating his head. He reports that he chronically sleeps with his head elevated. He denies any increased shortness of breath. He does report he has had a cough x1.5 months and approximately 10 days ago was started on cefuroxime 500 mg. He also reports that his prednisone was increased to 25 mg p.o. daily for the past 10 days. He does report productive cough with clear to giles colored secretions. He also reports that he has had a 10- pound weight gain in the past week due to his leg swelling. He also reported in the emergency room right-sided chest pain that was aching. Denied any radiation. Nothing made it better, nothing made it worse. Due to his symptoms of increased leg swelling, he presented to the emergency room for further evaluation. While in the emergency room, the patient had routine lab work drawn. He was found to have a BNP greater than 1300 and a troponin of 0.22, potassium of 3.4, and elevated BUN and creatinine; BUN was at 179 and creatinine at 3.35. Creatinine is close to the patient's baseline. The patient denies any fever or unintended weight loss. He does report right-sided chest pain. He does report increased lower extremity edema x2 days. He does report a productive cough with clear to giles colored secretions. Denies any hemoptysis or shortness of breath. No nausea, vomiting, or diarrhea. Denies any gross hematuria, dysuria , focal weakness, or sensory loss. Denies any visual complaints, dysphagia, or arthralgias. He does report generalized body aches. He denies any rashes, lesions, open sores, psychosis, or anxiety. Due to his increased lower extremity edema and elevated troponin, we were asked to see and evaluate him for admission. PAST MEDICAL HISTORY: Significant for: 1. Hypertension. 2. Coronary artery disease, status post CABG with 5-vessel bypass, moderate LVH. 3. History of pacemaker. 4. Hyperlipidemia. 5. Renal transplant. 6. Chronic kidney disease. PAST SURGICAL HISTORY: 1. Renal transplant in 2002. 2. Hernia repair. 3. Knee surgery on the right x3. 4. Appendectomy. 5. Pacemaker. 6. Five-vessel bypass in 2016. HOME MEDICATIONS: Include: 1. Imdur 15 mg in the morning, 45 mg in p.m. 2. CellCept 1000 mg twice daily. 3. Prednisone was increased 10 days ago to 25 mg p.o. daily. 4. Aspirin 81 mg p.o. daily. 5. Allopurinol 300 mg p.o. daily. 6. Cyclosporine 100 mg 1 cap twice daily. 7. Torsemide 60 mg p.o. daily. 8. Metoprolol 50 mg p.o. daily. 9. Fenofibrate 67 mg p.o. daily. 10. Metolazone 5 mg p.o. daily. 11. Rosuvastatin 20 mg p.o. daily. 12. Hydralazine 25 mg 1 tablet three times a day. 13. Ceftin 500 mg p.o. daily. ALLERGIES: NORVASC and DOXYCYCLINE. FAMILY HISTORY: Brother with an AZ and stent. Father with an AZ, at the age of 57. Denies any reported history or family history of diabetes. Brother with leukemia. SOCIAL HISTORY: The patient has never smoked. He reports rare alcohol use. Denies any illicit drug use. He lives with his girlfriend. He currently works as an territory account executive. His surrogate decision maker in the event he is unable to make his own decisions is his brother. He is a full code. REVIEW OF SYSTEMS: A 14-point review of systems was completed. All pertinent positives are mentioned in the HPI, otherwise are negative. PHYSICAL EXAMINATION GENERAL: At this time, Mr. Meraz is a 63-year-old male. He is resting comfortably on the stretcher in the emergency room. He is not in any acute or respiratory distress. VITAL SIGNS: Blood pressure 131/93, heart rate 66, respirations are 23, O2 saturation 93%, temperature was 98.9. HEENT: Head is atraumatic, normocephalic. Eyes: EOMs are intact. Sclerae anicteric and not pale. Oral mucosa appeared to be moist. NECK: Supple. He does have positive JVD. LUNGS: Diminished bilaterally with crackles at the bases. CARDIAC: S1, S2. Regular rate and rhythm. No rubs or gallops. ABDOMEN: Soft and nontender. Bowel sounds are present x4. EXTREMITIES: He can move all 4 extremities. He does have 3+ pitting edema to bilateral lower extremities. Skin: He does have mild erythema noted to the left lower leg. NEUROLOGIC: He is awake, alert, and oriented x3. Speech is clear. Thought process is intact. There are no gross focal deficits. DIAGNOSTIC STUDIES/LAB DATA: WBCs are 15.0, RBCs 4.23, hemoglobin 12.2, hematocrit was 38, platelet count 158. Sodium 134, potassium 3.4, chloride 94, carbon dioxide was 24, anion gap of 16, BUN was 179, creatinine 3.35, calcium was 8.8, magnesium was 2.2. Total bilirubin was 1.90. AST was 38, ALT was 22, alkaline phosphatase was 50. Total CK was 705. Troponin was 0.22, repeat was 0.20. C-reactive protein was 11.05. BNP was greater than 1300. TSH was 2.34. Urine was within normal limits with the exception of specific gravity of 1.009 , urine protein was 1+, and urine blood was 1+. He had a chest x-ray. Radiologist's impression: Probable mild interstitial edema with associated small to moderate right and small left pleural effusions with proportional basilar atelectasis. Inflammatory infiltrate at the right lung base is not excluded. Correlate clinically. He had a venous Doppler. Radiologist's impression: No right or left lower extremity deep vein thrombosis, right Barron cyst, cystic lesion posterior to the left saphenofemoral junction without internal flow of unclear etiology. The differential includes chronic seroma versus hematoma. He had an electrocardiogram which showed sinus rhythm at a rate 61, prolonged ME , left bundle-branch block. ASSESSMENT AND PLAN: Mr. Meraz is a 63-year-old male with a past medical history of significant coronary artery disease, status post coronary artery bypass graft with 5-vessel bypass, pacemaker placement, hypertension, moderate left ventricular hypertrophy, history of renal transplant in 2002, who presented with complaints of 10-pound weight gain and lower extremity edema. He will be admitted inpatient for: 1. Lower extremity swelling. I suspect this is related to diastolic congestive heart failure. The patient does have bilateral pleural effusions and 3+ pitting edema to the lower extremities. He does have chronic renal disease. I will place him on Lasix 60 mg IV q.12 hours, place him on strict I and O's and daily weights. He will also be monitored on telemetry. 2. Abnormal EKG and elevated troponin. The patient does have an elevated troponin. He does have a significant cardiac history of 5-vessel bypass and left ventricular hypertrophy. I have consulted Cardiology, Dr. Cabrera, who has recommended a transthoracic echocardiogram which is currently pending. I have also requested records from his platform man at [facility] for comparison. We will continue to monitor him on telemetry and to continue to trend his troponin. I will repeat an EKG in the a.m. and further recommendations per Cardiology. We will also continue on his metoprolol as previously prescribed. The patient will continue on Imdur as well. 3. Chronic kidney disease. The patient does have chronic kidney disease. His BUN and creatinine are mildly elevated above baseline. His last BUN and creatinine were 139 and 3.5 drawn on 01/06/19. Repeat today was 179 and 3.35. I have consulted Nephrology, Dr. Rojas, who will see the patient in consultation tomorrow. She has recommended a 24-hour urine protein and creatinine clearance, CMV, cyclosporine level, EBV, and evaluation for PCP pneumonia. She has recommended a renally dosed vancomycin and Zosyn for treatment of the pneumonia. As far as his diastolic congestive heart failure, she has recommended Lasix IV. We will continue with 60 mg IV q.12 hours. The patient may need to go on a Lasix drip as previous approximately 1 year ago the patient presented with similar symptoms and at that time was placed on a Lasix drip. 4. Right-sided pneumonia. The patient has had a chronic cough for the past 1.5 months. He was started on Ceftin 500 mg about 10 days ago with no improvement of his symptoms. He continues to have a hoarse cough with productive clear to giles colored sputum. I will send his sputum for C and S, and fungal. As the patient is immunocompromised due to his renal transplant, I will place him on Zosyn and vancomycin that will be renally dosed through the pharmacy. We may have to broaden his coverage to cover for fungal infections pending sputum cultures. I will also send urine for legionella and Streptococcus pneumoniae. The patient has a moderate ascites with right pleural effusion. This, in the future, may need to be drained if his pneumonia does not improve. I have also asked ID to consult on the patient for further recommendations on antibiotics. 5. Hypertension. He will continue on hydralazine and metoprolol as previously prescribed. 6. History of renal transplant. He will continue on CellCept, prednisone 5 mg , and cyclosporine 100 mg p.o. b.i.d. 7. Hyperlipidemia. He will continue on rosuvastatin as previously prescribed. 8. FEN: He can have a heart healthy diet. 9. Code status: He is a full code. 10. DVT prophylaxis: I will place him on heparin subcu. TIME SPENT: Time spent on this admission was 90 minutes; greater than half that time was spent at the bedside reviewing the events leading thus far to his hospitalization, performing my physical exam and reviewing my plan of care, discussing with the specialists from Nephrology and Cardiology. I have discussed this my attending Dr. Karyn Diane; she is in agreement with my plan. JOE SAUCEDA NP [id number]/[facility] #: [id number] [place]
[2019-01-21] MEDS: Heparin VIAL(*) 5000 UNITS/ML VIAL (FIVE THOUSAND) SUBCUT SCH ×2 (05:56→13:44)
[2019-01-21 06:52] LABS: Calcium 8.2 mg/dL (8.6-10.3); EGFR African American 21.9 (>60); EGFR Non-African American 18.1 (>60); HDL Cholesterol 28.3 mg/dL; Potassium 3.1 mmol/L (3.5-5.0)
[2019-01-21 07:09] LABS: BUN/Creatinine Ratio 49.1 (8-20)
[2019-01-21 07:10] LABS: ABS Eosinophils 0.1 10^3/ul (0-0.6); ABS Lymphocytes 0.7 10^3/ul (1.0-4.8); ABS Monocytes 0.7 10^3/ul (0-0.8); ABS Neutrophils 10.5 10^3/ul (1.5-7.7); Eosinophil % 0.7 %; Hematocrit 36 % (42-52); Hemoglobin 11.7 g/dL (14.0-18.0); Lymphocyte % 6.1 %; Mean Corpuscular HGB Conc 32 g/dL (31-36); Mean Corpuscular Hemoglobin 29 pg (27-31); Mean Corpuscular Volume 90 fL (80-94); Mean Platelet Volume 11.1 fL (7.4-10.4); Nucleated Red Blood Cells % 0.2; Platelet Count 123 10^3/uL (150-450); Red Blood Count 4.02 10^6 /uL (4.18-5.48); Red Cell Distribution Width 17 % (10.5-15); White Blood Count 12.1 10^3/uL (3.5-10.8)
[2019-01-21 08:24] VITALS: BP 148/93
[2019-01-21] MEDS ORDERED: Metolazone TAB* 5 MG PO SCH (08:30)
[2019-01-21] MEDS: ZOSYN 3.375 GM Q12H per EXTENDED INFUSION IVPB SCH ×2 (08:58)
[2019-01-21] MEDS ORDERED: Furosemide IV* 10 MG/ML VIAL (40 MG) IV SCH ×3 (09:00)
[2019-01-21] MEDS ORDERED: Isosorbide Mononitrate ER TAB* 30 MG PO SCH (09:00)
[2019-01-21] MEDS: hydrALAZINE TAB* 25 MG PO SCH ×2 (09:00→13:44)
[2019-01-21] MEDS ORDERED: Aspirin EC TAB* 81 MG TAB.EC PO SCH (09:00)
[2019-01-21] MEDS ORDERED: Allopurinol TAB* 100 MG PO SCH (09:00)
[2019-01-21] MEDS ORDERED: Metoprolol Succinate XL TAB* 50 MG PO SCH (09:00)
[2019-01-21] MEDS: Mycophenolate Mofetil TAB(*) 500 MG PO SCH (09:02)
[2019-01-21] MEDS: CYCLOSPORINE 100 MG PO SCH (09:03)
[2019-01-21] MEDS ORDERED: Vancomycin Random Level* NOTE FOLLOW UP ONE (10:00)
[2019-01-21] MEDS ORDERED: Potassium Chlor TAB* 20 MEQ TAB.ER PO SCH (11:00)
[2019-01-21] MEDS ORDERED: predniSONE TAB* 5 MG PO SCH (13:00)
[2019-01-21] MEDS ORDERED: cefTRIAXone(*) 1 GM in NS 0.9% 50 ML* 50 ML IVPB SCH (14:00)
--- NOTE | 2019-01-21 14:34 | TRS ---
CC: Dr. Flory Justice; Dr. Garcia DISCHARGE SUMMARY: DATE OF ADMISSION: 01/20/19 DATE OF TRANSFER: 01/21/19 ACCEPTING PHYSICIAN: Dr. Flory Justice, hospitalist at [facility]. THEATRICAL DRESSER: Dr. Garcia. DISCHARGE DIAGNOSES: 1. Acute systolic congestive heart failure exacerbation. 2. Segas-fn-akecnoy renal failure. 3. Left lower extremity cellulitis. 4. Troponin elevation. SECONDARY DIAGNOSES: 1. Hypertension. 2. Coronary artery disease, status post CABG with 5-vessel bypass. 3. Status post ICD. 4. Hyperlipidemia. 5. Polycystic kidney disease, status post renal transplant. 6. Arthritis. 7. Basal cell carcinoma of the nose. 8. Diverticulosis. 9. Gastroesophageal reflux disease. 10. Fatty liver. 11. Gout. 12. Hyperlipidemia. 13. Hypertension. 14. Benign prostatic hypertrophy. 15. Incisional hernia. MEDICATION AT THE TIME OF TRANSFER: 1. Acetaminophen 650 mg p.o. q.4 hours p.r.n. pain or fever. 2. Allopurinol 100 mg p.o. daily. 3. Aspirin 81 mg p.o. daily. 4. Cyclosporin 100 mg p.o. b.i.d. 5. Fenofibrate 54 mg p.o. daily. 6. Furosemide 60 mg IV b.i.d. 7. Heparin 5000 units subcutaneously q.8 hours. 8. Hydralazine 25 mg p.o. t.i.d. 9. Imdur 15 mg p.o. in the morning and 45 mg p.o. in the evening. 10. Metolazone 5 mg p.o. daily. 11. Metoprolol succinate 50 mg p.o. daily. 12. Mycophenolate mofetil 1000 mg p.o. b.i.d. 13. Zosyn 3.375 g IV q.12 hours. 14. Potassium chloride mEq p.o. q.4 hours x2 doses. 15. Rosuvastatin 20 mg p.o. at bedtime. 16. Prednisone 5 mg daily. HOSPITAL COURSE: Mr. Meraz is a 63-year-old male with complex past medical history as stated above wh o presented to the emergency room with complaints of shortness of breath, lower extremity edema, and right-sided chest pain. The patient has had this dry cough for almost 2 months. He was seen by his primary care provider as outpatient and he had been treated with Augmentin and doxycycline with no im provement. He will follow up with his PCP on 01/13/19 and at that time the impression was that Cefti n would provide coverage for respiratory infection and also there was concern for left lower extremit y cellulitis and that would be covered with the antibiotic also. The patient states that his symptoms persisted, so he came to the emergency room for further evaluati on yesterday. He had a chest x-ray that showed interstitial edema with moderate right and small left pleural effusi ons. Lower extremity Doppler showed no DVT, but a right Barron's cyst and a septated cystic lesion po sterior to the left saphenofemoral junction without internal flow of unclear etiology. Differential includes chronic seroma/hematoma. Transthoracic echocardiogram revealed estimated ejection fraction of 10% to 15% with severe diffuse h ypokinesis. His last echocardiogram done at [place] in December 2017 had shown an ejection fraction of 25 % at that time. The patient was admitted for further evaluation and he was seen in consultation by Cardiology (Dr. Chary agustin). His impression was that the patient has multiple problems, now presents with swelling, weight gain, pleural effusions, cellulitis of the left lower extremity and worsening renal insufficiency. He initially recommended gentle diuresis with IV furosemide, blood pressure control, monitor his elec trolytes and to obtain records from his primary care provider. As described above, his echo in 2017 had shown ejection fraction of 25% that is now down to 10%. He also had a stress test done in February 10 that showed very extensive inferior scarring extending into adjacent inferolateral, inferoseptal, and inferoapical myocardium. Significant ischemia was not seen with considerable left ventricular di latation, severe reduction in systolic function with ejection fraction of 20%. He was last seen in [facility] by Dr. Tilley in November 2018 and at that time, his impression was that patient's CAD was cli nically stable. He recommended continuation of therapeutic aspirin and beta-blockers, that his blood pressure was controlled and that the patient's CHF was in a state of tenuous compensation at that ti mi. Today, the patient has not had significant improvement of his symptoms despite diuretic use. His cre atinine is up to 3.4. On his prior admission to [facility] [place] last year, his creatinine was 2.8. He denies chest pain at this time, but he did have borderline troponin elevation at 0.23. After reviewing the case with Dr. Cabrera, his recommendation was to transfer the patient to a higher level of care considering the progression of his heart disease and his significant renal disease with post transplant state and worsening renal function. The case was discussed with aviation neuropsychologist, Dr. Garcai and he felt that the patient could be transf erred to the medical service, and Cardiology and Nephrology would consult. Hospitalist, Dr. Justice ac cepted the patient in transfer. Original plan was for the patient to be seen by Infectious Disease in our facility since the patient has had Augmentin, doxycycline, Ceftin as outpatient, but his cellulitis persists. At this time, he is on Zosyn but he will be transferred before ID consult, so he may benefit of ID evaluation at [facility]. PHYSICAL EXAMINATION: Vital Signs: Temperature 97.7, heart rate is 72, respiratory rate is 20, oxyg en saturation 97% on room air, blood pressure is 148/93. General: The patient is a pleasant, elderl y gentleman, sitting up in bed, in no acute distress. Chest: Bibasilar crackles, also diminished in bases. CVS: Normal S1 and S2. Regular rate and rhythm. Abdomen is soft, obese with suggestion of ascites. Extremities: There is bilateral moderate to severe pitting edema with erythema from the ma lleolar area up to the calf. Neuro: He is alert and oriented x3. Able to move all 4 extremities. DIET: Heart-healthy diet. ACTIVITY: As tolerated. DISPOSITION: Transferred to [facility]. STATUS WHILE IN THE HOSPITAL: Inpatient. CONDITION AT THE TIME OF DISCHARGE: Guarded. Please keep in mind this is a summarized version of this patient's hospital stay. If you need more in formation, please feel free to call me at [phone] or please obtain the full medical records. TIME SPENT: Approximately 45 minutes was spent to complete this discharge. [id number]/[facility] #: [id number]
[2019-01-21 15:01] LABS: Vancomycin Random 11.6 mcg/mL
--- NOTE | 2019-01-21 19:32 | CONS ---
NEPHROLOGY CONSULTATION: DATE OF CONSULT: 01/20/19 SERVICE: [facility] Nephrology. REQUESTING PHYSICIAN: Karen Sauceda NP. REASON FOR CONSULT: History of kidney transplant, chronic kidney disease, and volume overload. HISTORY OF PRESENT ILLNESS: A 63-year-old male with past medical history of hypertension, coronary a rtery disease with moderate LVH, AZ, bypass surgery, pacemaker, renal transplant in 2002 for polycyst ic kidney disease, current chronic kidney disease stage 4, came into the hospital with increased swel ling of bilateral lower extremities for the last 2 days. The patient also reports a dry cough that h as been ongoing for a month and dyspnea. The patient was treated as an outpatient with prednisone 25 mg with a tapering dose and has been on Ceftin the last 10 days with no improvement and the patient came into the hospital for further evaluation. The patient was noted to have an elevated BNP, on ches t x-ray was noted to have possible pneumonia, and evidence of interstitial edema. In evaluating his renal function, the patient has a history of live-donor transplant from his ex- in 2002 for polyc ystic kidney disease. He was the only one in his family with polycystic kidney disease and hence keita s not appear to be autosomal dominant. The patient is 16 years from his living-donor transplant and noted to have a creatinine of 2.9 and previously in the 3 and 3.35 range and currently appears to be at baseline in CKD 4 range. PAST MEDICAL HISTORY: 1. Hypertension. 2. Coronary artery disease, status post CABG with 5-vessel bypass, moderate LVH. 3. History of pacemaker. 4. Hyperlipidemia. 5. Renal transplant. 6. Chronic kidney disease. PAST SURGICAL HISTORY: 1. Renal transplant. 2. Hernia repair. 3. Knee surgery on the right. 4. Appendectomy. 5. Pacemaker. 6. Bypass. MEDICATIONS: Home medications prior to hospital stay: 1. Imdur 15 mg in the morning, 45 mg in the p.m. 2. CellCept 1000 mg twice daily. 3. Prednisone, usually takes 5 mg, but currently increased to 25 mg. 4. Aspirin 81 mg daily. 5. Allopurinol 300 mg p.o. daily. 6. Cyclosporine 100 mg 1 cap twice daily. 7. Torsemide 60 mg p.o. daily. 8. Metoprolol 50 mg p.o. daily. 9. Fenofibrate 67 mg p.o. daily. 10. Metolazone 5 mg p.o. daily. 11. Rosuvastatin 20 mg p.o. daily. 12. Hydralazine 25 mg 1 tablet 3 times a day. 13. Ceftin 500 mg p.o. daily. FAMILY HISTORY: Brother with AZ and stent. Father with AZ, at the age of 57. Denies any known family history of polycystic kidney disease. Brother with leukemia. SOCIAL HISTORY: Never smoked. Reports occasional alcohol use. Denies any recreational drug use. REVIEW OF SYSTEMS: As described in the HPI. Other 14-point review of systems noted to be negative. PHYSICAL EXAM: Vitals: Blood pressure 131/93, heart rate 66, respirations 23, oxygen saturation 93% on room air, temperature 98.9. General: Alert, oriented, in no acute distress. HEENT: NC/AT. He art: S1, S2 present. Regular at the time of exam. Lungs: The patient noted to have minimal crackl es at the bases, diminished bilaterally. Abdomen: Soft, nontender. No rebound. No guarding. Extr emities noted to have 3+ pitting edema bilateral lower extremities with erythema of his left lower le g. Neuro: Alert, oriented x3. Speech is clear. No focal deficits. No asterixis. DIAGNOSTIC STUDIES/LAB DATA: WBC 15, hemoglobin 12.2, hematocrit 38, platelets noted to be 158. Sod ium 134, potassium 3.4, chloride 94, CO2 of 24, BUN 179, creatinine 3.35. Chest x-ray: Probable interstitial edema with associated [id number] right and left pleural ef fusion with proportional bibasilar atelectasis. Inflammatory infiltrate at the right lung base not e xcluded, correlate clinically. Doppler of the lower extremity: Right Barron cyst with differentials including seroma versus hematoma . ASSESSMENT AND PLAN: A 63-year-old male with past medical history of coronary artery disease, status post CABG; pacemaker; hypertension; renal transplant in 2002, here with volume overload and shortnes s of breath. 1. Volume overload, congestive heart failure exacerbation. The patient had a similar presentation l ast year when he was hospitalized for volume overload and pneumonia. At this time, recommend placing him on Lasix 60 mg IV b.i.d. and if further diuresis is needed can consider placing him on a Bumex d rip, but can assess response with IV Lasix initially. Other recommendations for treatment of his con gestive heart failure per the medical team and net development manager who has been consulted as well. 2. Pneumonia in the post transplant setting. The patient is 16 years from his initial transplant. The patient is at risk for multiple organisms including Pneumocystis carinii pneumonia as he is not o n any prophylaxis. Recommend getting an ABG to evaluate for hypoxia. Does not have bilateral infilt rates suggestive of Pneumocystis carinii pneumonia. At this time, recommend a broad coverage for hea lthcare-associated pneumonia/community-acquired pathogens as community pathogens are still high on th e list 16 years from his initial transplant. As the patient has already failed outpatient regimen fo r community-acquired pneumonia, recommend hospital-associated organism coverage and healthcare-associ ated pneumonia coverage with vancomycin renally dosed very small dose with Zosyn. Recommend also get ting ABG and checking for Pneumocystis carinii pneumonia and checking for EBV and CMV. Further testin g can be done based on the patient's clinical progress. 3. With respect to his transplant medications, I recommend continuing the prednisone at 5 mg. The p atient does not need 25 mg currently. Also recommend continuing his cyclosporine at the dose that he is on and the CellCept as well. For now, I also recommend getting a cyclosporine level on the patien t. 4. Hypokalemia. Can mildly replace with 10 mEq and add further. We will follow closely with the medical team based on the patient's progress. [id number]/[facility] #: [id number]
--- NOTE | 2019-01-21 20:13 | DS ---
CC: Dr. Dane Clayton; Dr. Salinas Tilley TRANSFER SUMMARY: DATE OF ADMISSION: DATE OF TRANSFER: PRIMARY CARE PROVIDER: Bella Lopez [place]. INTERNATIONAL TRADE TEACHER: Bella Wilcox. DICTATION ENDS HERE [id number]/[facility] #: [id number]
--- NOTE | 2019-01-22 00:25 | PN ---
PROGRESS NOTE: DATE OF VISIT: 01/21/19 SUBJECTIVE: The patient seen and examined at bedside. The patient reports feeling significantly bet ter compared to yesterday. Vitals and labs have been reviewed. PHYSICAL EXAM: HEENT: NCAT. Heart: S1, S2 present. Regular at time of exam. Lungs: Decreased br eath sounds bilaterally. Abdomen: Soft. Extremities: Noted to have edema bilaterally 2+, erythema on the left leg improving. ASSESSMENT AND PLAN: 1. History of kidney transplant in 2002 secondary to polycystic kidney disease . 2. Recommend continuation of his immunosuppressive medications. 3. Pneumonia, on coverage with vanco and Zosyn currently with improvement in clinical status. 4. Volume overload, responding well to IV diuresis with Lasix. 5. Please refer to my detailed consult note from last night for full details. 6. Also EBV, CMV, ABG, and cyclosporin levels are pending. 7. Per discussion with the medicine team and the patient, the patient being transferred to [facility] for further cardiac evaluation. 8. The patient can follow up with Dr. Matamoros once he is clinically stabilized as an outpatient. [id number]/[facility] #: [id number]
== END 2019-01-21 14:58 | disposition short-term general hospital (02) | DRG 291 ==
LOC: ED 11:50 → MEDTELE 16:17
PROVIDERS: ADMIT Internal Medicine; ATTEND Internal Medicine
DX: I13.0 Hypertensive heart and chronic kidney disease with heart failure and stage 1 through stage 4 chronic kidney disease, or unspecified chronic kidney disease (principal); J18.9 Pneumonia, unspecified organism; I50.23 Acute on chronic systolic (congestive) heart failure; N17.9 Acute kidney failure, unspecified; R18.8 Other ascites; N18.4 Chronic kidney disease, stage 4 (severe); Z94.0 Kidney transplant status; L03.116 Cellulitis of left lower limb; I44.7 Left bundle-branch block, unspecified; M71.21 Synovial cyst of popliteal space [Baker], right knee; I25.10 Atherosclerotic heart disease of native coronary artery without angina pectoris; R74.8 Abnormal levels of other serum enzymes; K21.9 Gastro-esophageal reflux disease without esophagitis; N52.9 Male erectile dysfunction, unspecified; N40.0 Benign prostatic hyperplasia without lower urinary tract symptoms; F34.1 Dysthymic disorder; E78.5 Hyperlipidemia, unspecified; M19.90 Unspecified osteoarthritis, unspecified site; K76.0 Fatty (change of) liver, not elsewhere classified; N25.0 Renal osteodystrophy; M10.9 Gout, unspecified; K43.2 Incisional hernia without obstruction or gangrene; K57.90 Diverticulosis of intestine, part unspecified, without perforation or abscess without bleeding; Z96.652 Presence of left artificial knee joint; Z88.8 Allergy status to other drugs, medicaments and biological substances; Z85.828 Personal history of other malignant neoplasm of skin; I25.2 Old myocardial infarction; Z95.1 Presence of aortocoronary bypass graft; Z95.0 Presence of cardiac pacemaker; Z82.49 Family history of ischemic heart disease and other diseases of the circulatory system; Z80.6 Family history of leukemia; Z79.82 Long term (current) use of aspirin; Z79.52 Long term (current) use of systemic steroids
CPT/HCPCS: 36415; 71046; 80048; 80053; 80061; 80158; 80202; 81003; 81015; 82550; 83605; 83735; 83880; 84443; 84484; 85025; 86140; 86663; 87086; 87497; 87899; 93005; 93306; 93970; 99284; A9270-GY; J0696; J1644; J1940; J2543; J3370; J7502; J7512